=== PATIENT | male | born 1965 | race Caucasian/White ===

== ENCOUNTER 2021-05-31 16:32 | Emergency (ER) | payer BC, SELFPAY ==
--- NOTE | ~2021-05-31 | CT_ITS ---
EXAMINATION: CTA [facility] DATE: 05/31/2021 18:50 INDICATION: Groin trauma, large T1 of the left inner thigh TECHNIQUE: Computed tomographic angiography (CTA) of the left lower extremity extremities was perform ed with 100 mL Omnipaque-350 intravenous contrast. The dose-length product (DLP) was 907.40 mGy-cm. M aximum intensity projection 3D-reconstructions of the arteries were created by the technologist on a separate workstation. Automated exposure control and iterative reconstruction technique were employed . COMPARISON: None. FINDINGS: LEFT LOWER EXTREMITY VASCULATURE: The left lower extremity arterial vasculature is normal from the external iliac artery through the fo ot. No aneurysm dissection, or pseudoaneurysm is identified. There is a three-vessel runoff at the an kle. ADDITIONAL FINDINGS: There is a large soft tissue defect in the anteromedial aspect of the mid thigh. There are foci of ga s and hematoma in the left sartorius muscle. There are also foci of gas within and surrounding the sa rtorius extending within the fascia down the leg. There is a superficial soft tissue hematoma on imag e 137. No definite contrast extravasation is identified. IMPRESSION: 1. Normal left lower extremity arterial vasculature. 2. Large soft tissue defect in the anteromedial left thigh with foci of hematoma and gas predominantl y involving the sartorius muscle. Reviewed, dictated and finalized at location A. IMPRESSION: 1. Normal left lower extremity arterial vasculature. 2. Large soft tissue defect in the anteromedial left thigh with foci of hematom a and gas predominantly involving the sartorius muscle.
[2021-05-31 16:42] VITALS: BP 162/96; PULSE 104; RESP 18; TEMP 37.1; O2SAT 95
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
[2021-05-31] MEDS: SODIUM CHLORIDE 0.9% IV 1,000 ML 999 ML IV CONT (17:35)
[2021-05-31] MEDS: MORPHINE SULFATE (*CRX) 4 MG/ML INJ IV PUSH ×2 (17:36→20:29)
[2021-05-31] MEDS: ceFAZolin 2 GM/D5W 50 ML 2 GM/50 ML BAG IVPB (17:50)
[2021-05-31 17:57] LABS: Basophils Absolute Auto 0.1 K/mm3 (0.0-0.1); Basophils Percent Auto 0.4 % (0.2-1.2); Eosinophils Absolute Auto 0.1 K/mm3 (0-0.3); Eosinophils Percent Auto 0.9 % (0-4.4); Hematocrit 51.6 % (42.0-52.0); Hemoglobin 17.7 g/dL (14.0-18.0); Immature Granulocyte Absolute 0.07 K/mm3 (0.00-0.031); Immature Granulocyte Percent A 0.5 % (0-0.5); Lymphocytes Absolute Auto 1.84 K/mm3 (0.9-3.2); Lymphocytes Percent Auto 11.8 % (18.3-44.2); Mean Corpuscular HGB Conc 34.3 g/dl (32-36); Mean Corpuscular Hemoglobin 31.9 pg (26-34); Mean Platelet Volume 10.6 fl (7.4-10.4); Monocytes Absolute Auto 1.2 K/mm3 (0.1-0.6); Monocytes Percent Auto 7.8 % (2.6-8.5); Neutrophils Absolute Auto 12.2 K/mm3 (1.3-6.7); Neutrophils Percent Auto 78.6 % (45.5-73.1); Platelet Count Result 239 k/mm3 (150-375); Red Blood Count 5.55 M/mm3 (4.6-6.20); Red Cell Distribution Width 14.1 % (11.5-14.5); White Blood Count 15.6 K/mm3 (4.5-10.0)
[2021-05-31 18:11] LABS: Alanine Aminotransferase 46 U/L (4-50); Albumin Level 4.5 g/dL (3.5-5.1); Alkaline Phosphatase 55 U/L (38-126); Anion Gap 10 mmol/L (8-16); Aspartate Amino Transferase 50 U/L (17-59); Bilirubin,Total 0.5 mg/dL (0.2-1.3); Blood Urea Nitrogen 23 mg/dL (9-20); Calcium 9.6 mg/dL (8.4-10.2); Carbon Dioxide 27 mmol/L (22-30); Chloride 101 mmol/L (98-107); Estimated CRCL calculation 70 ml/min; Estimated Glomerular Filt Rate > 60; Glucose 112 mg/dL (65-110); Potassium 4.3 mmol/L (3.4-5.0); Sodium 138 mmol/L (137-145)
[2021-05-31 18:14] LABS: INR 0.9
[2021-05-31 18:15] LABS: Partial Thromboplastin Time 27.7 SECONDS (22.3-36.8)
--- NOTE | 2021-05-31 18:33 | PC.NURSE ---
Pt tolerated repair well,
[2021-05-31] MEDS: LORazepam INJ (*CRX) 2 MG/ML VIAL 1 MG IV PUSH (20:38)
[2021-05-31 21:08] VITALS: BP 144/89; PULSE 69; RESP 18; O2SAT 99
[2021-05-31 21:44] VITALS: BP 157/90; PULSE 72; RESP 15; O2SAT 100
== END 2021-05-31 21:46 | disposition home or self-care (01) ==
PROVIDERS: Emergency Medicine Emergency Medical Services; Emergency Provider General Practice; PCP Nurse Practitioner Family
DX: S71.112A Laceration without foreign body, left thigh, initial encounter (principal); V86.56XA Driver of dirt bike or motor/cross bike injured in nontraffic accident, initial encounter
CPT/HCPCS: 12034; 36415; 73706; 80053; 85025; 85610; 85730; 96365; 96375; 96376; 99284; J0690; J2060; J2270; J7030; Q9967

== ENCOUNTER 2023-09-09 07:22 | Inpatient (IN) | payer BC, SELFPAY ==
[2023-09-09] VITALS (22 sets, daily range): BP systolic 119–186; BP diastolic 65–106; PULSE 67–93; RESP 13–24; TEMP 36.6–36.8; O2SAT 91–100; BMI 29.7
--- NOTE | 2023-09-09 | ECHO_ITS ---
Patient Info Name: Kenroy Miranda Age: 58 years : 1965 Gender: Male Ht: 71 in Wt: 202 lbs BSA: 2.16 m2 HR: 87 bpm BP: 157 / 99 mmHg Heart Rhythm: Sinus Rhythm Technical Quality: Fair Exam Date: 09/09/2023 1:17 PM Exam Location: Echo Lab Exam Room: ICU4 Patient Status: Inpatient Admit Date: 09/09/2023 Staff Ordering Physician: Gertrudis Delarosa MD (tami/celso) Student Life Coordinator: Julieta Gamez RDCS Attending Provider: Gertrudis Delarosa MD (tami/celso) Referring Physician: [place] DUPREE; Exam Type: CA echo dop color flow w con Study Info Indications - STEMI S/P STENT Complete two-dimensional, color flow and Doppler transthoracic echocardiogram is performed with contrast to opacify the left ventricle and to improve the deliniation of the left ventricle endocardial borders. Contrast/Agitated Saline Contrast/Ag. Saline: Definity Amount: 2.00 ml Administered By: Julieta Gamez [facility] Existing IV Access: Yes IV Access Condition: patent with no signs of infiltration Summary 1. Left ventricular chamber dimension is normal. 2. Left ventricular systolic function is mildly reduced, estimated at 40-45%. 3. There is hypokinesis of the inferior wall, inferolateral wall. 4. The left ventricular diastolic function is grade I diastolic dysfunction. 5. Right ventricular systolic function is normal. 6. There is mild tricuspid valve regurgitation. Left Ventricle There is hypokinesis of the inferior wall, inferolateral wall. Left ventricular chamber dimension is normal. Left ventricular systolic function is mildly reduced, estimated at 40-45%. There is no increased left ventricular wall thickness. The left ventricular diastolic function is grade I diastolic dysfunction. Right Ventricle Right ventricular chamber dimension is normal. Right ventricular systolic function is normal. Left Atria Left atrial chamber dimension is normal. Right Atria Right atrial chamber dimension is normal. Atrial Septum Intact interatrial septum visualized by color flow imaging. Aortic Valve The aortic valve is probable trileaflet. There is no aortic valve stenosis. There is no aortic valve regurgitation. Pulmonic Valve The pulmonic valve is not well visualized. Mitral Valve There is trace mitral valve regurgitation. Tricuspid Valve There is mild tricuspid valve regurgitation. Pericardium/Pleural There is no pericardial effusion. Inferior Vena Cava Normal inferior vena cava with >50% collapse upon inspiration consistent with normal right atrial pressure, 3 mmHg. Aorta The aortic root size at the sinus of Valsalva is normal. Left Ventricular Outflow Tract Name Value Normal LVOT 2D LVOT Diameter 2.10 cm LVOT Doppler LVOT Peak Gradient 4 mmHg LVOT Mean Gradient 2 mmHg LVOT VTI 17.30 cm LVOT VTI/AV VTI Ratio 0.93 LVOT Stroke Volume 59.96 ml LVOT CO 14.66 l/min LVOT CI 6.79 L/min/m2 Pulmonic Valve
--- NOTE | ~2023-09-09 | XR_ITS ---
Portable chest x-ray Comparison: 10/10/1999 Clinical History: Chest pain Findings: Lungs are clear, without focal consolidation or pleural effusion. Cardiomediastinal silho uette is stable. Bones and soft tissues are unremarkable. Impression: Normal chest Reviewed, dictated and finalized at [facility]. PERSON Impression: Normal chest
--- NOTE | 2023-09-09 07:23 | ECG_ITS ---
Measurements Intervals [place] Rate: 76 P: 62 HI: 159 QRS: -3 QRSD: 94 T: 81 QT: 359 QTc: 406 Interpretive Statements SINUS RHYTHM POSSIBLE LEFT ATRIAL ENLARGEMENT INCOMPLETE RIGHT BUNDLE BRANCH BLOCK ST-T WAVE ABNORMALITY IN ANTEROLATERAL LEADS- CONSIDER ISCHEMIA BASELINE ARTIFACT- I, III, AVF, V5 ABNORMAL ECG NO PREVIOUS ECG AVAILABLE FOR COMPARISON Electronically Signed On 09-09-2023 7:40:04 CATTLE RANCHER by Messi Yung D.O.
--- NOTE | 2023-09-09 07:40 | ECG_ITS ---
Measurements Intervals [place] Rate: 73 P: 58 VT: 277 QRS: 77 QRSD: 122 T: 94 QT: 372 QTc: 413 Interpretive Statements SINUS RHYTHM WITH FIRST DEGREE AV BLOCK POSSIBLE LEFT ATRIAL ENLARGEMENT INFERIOR ST ELEVATION MYOCARDIAL INFARCT- ACUTE POSTERIOR INFARCT, ACUTE ABNORMAL ECG COMPARED TO ECG 09/09/2023 07:30:41 FIRST DEGREE AV BLOCK NOW PRESENT STEMI NOW PRESENT Electronically Signed On 09-09-2023 8:44:31 SPECIAL CERTIFICATE DICTATOR by Messi Yung D.O.
--- NOTE | 2023-09-09 07:41 | ED.CHESTPAIN ---
HPI - Chest Pain General Chief Complaint: Chest Pain Stated Complaint: chest pain Time Seen by Provider: 09/09/23 07:29 History of Present Illness HPI narrative: 58-year-old male presented to the emergency department for evaluation for chest pain that started approximately 645 this morning. Patient denies any prior history of coronary disease. Patient states the pain stays in his left chest that does not radiate to his back. Related Data Home Medications Medication Instructions Recorded Confirmed dextroamphetamine-amphetamine 20 20 mg PO DAILY 06/03/21 09/09/23 mg tablet (Adderall) levothyroxine 25 mcg capsule 25 mcg PO DAILY 06/03/21 09/09/23 Allergies Allergy/AdvReac Type Severity Reaction Status Date / Time No Known Allergies Allergy Mild Verified 06/27/21 09:14 Review of Systems Review of Systems: All systems reviewed & are unremarkable except as noted in HPI and below PMFSH Past Medical History Medical History History of Hodgkin's disease History of thyroid disorder Family History Family History Mother Lung cancer Cancer of brain Social History Social History Years smoked: 10 Smoking status: Former smoker Alcohol intake: current Drinks per week: 3 Alcohol use details: socially Do You Feel Safe in your Home?: Yes Lack of Transportation: No Lack of Food: Never True Current Housing: I Have Housing Concerned About Future Housing: No Difficulty Paying Gas/Electric Bills: No Difficulty Paying for Meds: No Currently Unemployed: No Education: High School Diploma/GED Difficulty w/ Childcare or Family Care: No Living arrangements: alone Occupation/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 HEAD: normocephalic, atraumatic. EYES: PERRLA/EOMI, conjunctivae clear. NOSE: Normal no drainage EARS:TMS clear with good light reflex. THROAT: Pharynx clear, no exudate. NECK: Supple. No adenopathy, no masses. RESPIRATORY: Airway patent, respirations nonlabored. Clear to auscultation bilaterally, no rales, rhonchi, wheezing. CARDIOVASCULAR: Regular rate and rhythm without murmurs rubs or gallops. ABDOMINAL: Soft, nontender, nondistended, normal bowel sounds MUSCULOSKELETAL: Moves all extremities. Strength/ROM intact, No edema, No calf tenderness. NEURO: Alert. Cranial nerves II through XII intact. Grossly intact SKIN: Warm, dry. Normal Color Course Course Emergency Course: Delarosa was consulted for the initial EKG and heparin bolus was started. Initial EKG shows ST depression but no evidence of acute STEMI On re-evaluation the patient clinically looked worse and was diaphoretic. Repeat EKG showed progression to full STEMI and STEMI alert was called. Patient went to the paint laboratory technician from the emergency department. Vital Signs Vital signs: Vital Signs Temperature 97.8 F 09/09/23 07:27 Pulse Rate 76 09/09/23 07:27 Respiratory Rate 16 09/09/23 07:27 Blood Pressure 186/89 H 09/09/23 07:27 Pulse Oximetry 100 09/09/23 07:27 Oxygen Delivery Room Air 09/09/23 07:27 Temperature 97.8 F 09/09/23 12:00 Pulse Rate 85 09/09/23 17:15 Respiratory Rate 15 09/09/23 17:15 Blood Pressure 146/84 H 09/09/23 17:15 Pulse Oximetry 98 09/09/23 17:15 Oxygen Delivery Room Air 09/09/23 16:00 MDM - Chest Pain Lab Data 09/09/23 07:47 09/09/23 07:47 Labs: Lab Results 09/09/23 09/09/23 09/09/23 Range/Units 07:46 07:47 08:20 WBC 9.4 (4.5-10.0) K/mm3 RBC 6.02 (4.6-6.20) M/mm3 Hgb 18.5 H (14.0-18.0) g/dL Hct 56.3 H (42.0-52.0) % MCV 93.5 (80-100) fl MCH 30.7 (26-34) pg MCHC 32.9 (32-36)
[2023-09-09] MEDS: ONDANSETRON INJ 4 MG/2 ML VIAL (07:56)
[2023-09-09] MEDS: ASPIRIN 81 MG CHEWABLE TABLET 324 MG PO (07:57)
[2023-09-09 07:58] LABS: Basophils Absolute Auto 0.1 K/mm3 (0.0-0.1); Basophils Percent Auto 0.7 % (0.2-1.2); Eosinophils Absolute Auto 0.3 K/mm3 (0-0.3); Eosinophils Percent Auto 2.9 % (0-4.4); Hematocrit 56.3 % (42.0-52.0); Hemoglobin 18.5 g/dL (14.0-18.0); Immature Granulocyte Absolute 0.04 K/mm3 (0.00-0.031); Immature Granulocyte Percent A 0.4 % (0-0.5); Lymphocytes Absolute Auto 2.47 K/mm3 (0.9-3.2); Lymphocytes Percent Auto 26.4 % (18.3-44.2); Mean Corpuscular HGB Conc 32.9 g/dl (32-36); Mean Corpuscular Hemoglobin 30.7 pg (26-34); Mean Corpuscular Volume 93.5 fl (80-100); Mean Platelet Volume 9.5 fl (7.4-10.4); Monocytes Absolute Auto 1.2 K/mm3 (0.1-0.6); Neutrophils Absolute Auto 5.3 K/mm3 (1.3-6.7); Neutrophils Percent Auto 56.6 % (45.5-73.1); Platelet Count Result 243 k/mm3 (150-375); Red Blood Count 6.02 M/mm3 (4.6-6.20); Red Cell Distribution Width 16.8 % (11.5-14.5); White Blood Count 9.4 K/mm3 (4.5-10.0)
[2023-09-09] MEDS: NITROGLYCERIN SL 0.4 MG TABLET SUBLINGUAL (07:59)
[2023-09-09] MEDS: HEPARIN SODIUM 5,000 UNITS/ML VIAL 4000 UNITS IV PUSH (08:02)
[2023-09-09 08:10] LABS: INR 0.9
[2023-09-09 08:11] LABS: Partial Thromboplastin Time 30.3 SECONDS (22.3-36.8)
[2023-09-09 08:14] LABS: Alanine Aminotransferase 49 U/L (6-50); Albumin Level 4.6 g/dL (3.5-5.1); Alkaline Phosphatase 66 U/L (38-126); Anion Gap 10 mmol/L (8-16); Aspartate Amino Transferase 47 U/L (17-59); Bilirubin,Total 0.8 mg/dL (0.2-1.3); Blood Urea Nitrogen 21 mg/dL (9-20); Calcium 9.4 mg/dL (8.4-10.2); Carbon Dioxide 30 mmol/L (22-30); Chloride 101 mmol/L (98-107); Estimated CRCL calculation 85 ml/min; Estimated Glomerular Filt Rate > 60; Glucose 109 mg/dL (65-110); Lipase 46 U/L (23-300); Potassium 3.9 mmol/L (3.4-5.0); Sodium 141 mmol/L (137-145)
--- NOTE | 2023-09-09 08:35 | PC.NURSE ---
PT REPEAT EKG CONCERNING FOR CARDIAC EVENT. STEMI CALLED OVERHEAD
--- NOTE | 2023-09-09 08:44 | PC.NURSE ---
[facility] 837 O/H [address] [place] 838 Delarosa 840 ALS Kam - ETA 45min to 1Hr [place] [facility] notified of ETA
[2023-09-09 09:04] LABS: Influenza A QL RT-PCR Negative (Negative); Influenza B QL RT-PCR Negative (Negative); RSV RNA, RT-PCR Negative (Negative); SARS-CoV-2 RNA PCR Negative (Negative)
--- NOTE | 2023-09-09 10:13 | PM.IMHP ---
H&P: HPI History of Present Illness Date/Time: 09/09/23 10:13 Chief Complaint: Chest pain Narrative: Patient is a 58 year old male with hypothyroidism who presented with chest pain. First began having intermittent chest pain on Thursday morning, however, this morning, it became constant, therefore he came to [place] [facility]. Chest pain started at approximately 6:45AM. Upon arrival to the ED, initial EKG showed sinus rhythm, incomplete right bundle branch block, slight ST elevation in AVR with diffuse ST depressions. Patient had worsening chest pain afterwards, and a repeat EKG was obtained which showed inferoposterior STEMI. pit laborer activated. Upon arrival to photo lab technician, patient reported 1/10 chest pain. Hemodynamically stable. No prior cardiac history. Denies tobacco use. 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 Medications and Allergies Home Medications Medication Instructions Recorded Confirmed Type dextroamphetamine-amphetamine 20 20 mg PO DAILY 06/03/21 06/30/21 History mg tablet (Adderall) levothyroxine 25 mcg capsule 25 mcg PO DAILY 06/03/21 06/30/21 History Allergies Allergy/AdvReac Type Severity Reaction Status Date / Time No Known Allergies Allergy Mild Verified 06/27/21 09:14 Vital Signs Vital Signs - 24 hr 09/09/23 07:27 09/09/23 07:30 09/09/23 07:59 Temperature 36.6 C Pulse Rate 76 67 Respiratory Rate 16 14 Blood Pressure 186/89 H 143/94 H Pulse Oximetry 100 99 Oxygen Delivery Room Air Room Air 09/09/23 08:01 Temperature Pulse Rate 81 Respiratory Rate 16 Blood Pressure 141/84 H Pulse Oximetry 98 Oxygen Delivery Exam Const: General: no acute distress HENMT: Mouth: Yes moist mucous membranes Eyes: General: appearance normal, both eyes and all related structures Sclera: sclerae normal Resp: Effort & Inspection: normal respiratory effort Cardio: Rate: regular rate Rhythm: regular rhythm Skin: General skin exam: normal color Neuro: Speech: normal speech Psych: Mental Status: mental status grossly normal Affect: normal affect H&P: Results Labs Labs: Short CBC 09/09/23 Range/Units 07:47 WBC 9.4 (4.5-10.0) K/mm3 Hgb 18.5 H (14.0-18.0) g/dL Hct 56.3 H (42.0-52.0) % Plt Count 243 (150-375) k/mm3 BMP 09/09/23 07:47 Sodium 141 Potassium 3.9 Chloride 101 Carbon Dioxide 30 BUN 21 H Creatinine 0.90 Glucose 109 Calcium 9.4 Cardiac Enzymes 09/09/23 Range/Units 07:47 Troponin I 1.090 H* (0.000-0.034) ng/mL Liver Function 09/09/23 Range/Units 07:47 Total Bilirubin 0.8 (0.2-1.3) mg/dL AST 47 (17-59) U/L ALT 49 (6-50) U/L Alkaline Phosphatase 66 (38-126) U/L Albumin 4.6 (3.5-5.1) g/dL Assessment and Plan Assessment and plan (1) STEMI (ST elevation myocardial infarction): Code(s): I21.3 - ST elevation (STEMI) myocardial infarction of unspecified site Status: Acute Assessment and Plan: Inferoposterior STEMI. Emergent cardiac catheterization showed acute occlusion in the proximal RCA. S/p successful PCI with GHASSAN x 2 in the proximal to mid RCA. LVEDP 16mmHg. -Admit to ICU -Loaded with ASA in the ED. Continue with ASA 81mg once daily indefinitely. -Loaded with Brilinta 180mg in the photo lab technician. Continue with Brilinta 90mg BID. -Start high-intensity statin. -Echocardiogram. -Check lipid panel, Hgb A1c, TSH level. Aggressive risk factor mo
--- NOTE | 2023-09-09 10:21 | WPDMODSED ---
Moderate Sedation Note-Pt Data Patient Data Diagnosis: STEMI Present Complaint: Chest pain, STEMI Procedure to be performed/Plan: Primary PCI Allergies Allergy/AdvReac Type Severity Reaction Status Date / Time No Known Allergies Allergy Mild Verified 06/27/21 09:14 Home Medications Medication Instructions Recorded Confirmed Type dextroamphetamine-amphetamine 20 20 mg PO DAILY 06/03/21 06/30/21 History mg tablet (Adderall) levothyroxine 25 mcg capsule 25 mcg PO DAILY 06/03/21 06/30/21 History Current Medications: Active Medications Aspirin (Aspirin 81 Mg Enteric Tablet) 81 mg PO QAM NIC Atorvastatin Calcium (Atorvastatin 40 Mg Tablet) 80 mg PO DAILY NIC Sodium Chloride (Normal Saline Iv) 1,000 mls @ 125 mls/hr IV CONT .Q8H ONE Stop: 09/09/23 18:11 Perflutren Lipid Microsphere (Perflutren Lipid Microspheres 1.5 Ml Vial Diluted To 10 Ml Total Volume) 0 ml IV PUSH ONCE PRN; Protocol PRN Reason: adequate visualization Stop: 09/12/23 10:11 Ticagrelor (Ticagrelor 90 Mg Tablet) 90 mg PO Q12HR NIC Sedation/Anesthesia: No previous sedation/anesthesia problems (including family history). 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 Physical Exam Physical Exam Pre Procedural Exam: Normal: Appearance, Lungs, Heart Rate, Heart Rhythm, Neuro Exam, Abdomen, Extremities and Skin Hours since solid foods: 0 Hours since liquid intake: 0 Mallampati Classification: class III Internal Medicine - PN: Obj Da Vital Signs Vital Signs: Vital Signs - 24 hr 09/09/23 07:27 09/09/23 07:30 09/09/23 07:59 Temperature 36.6 C Pulse Rate 76 67 Respiratory Rate 16 14 Blood Pressure 186/89 H 143/94 H Pulse Oximetry 100 99 Oxygen Delivery Room Air Room Air 09/09/23 08:01 Temperature Pulse Rate 81 Respiratory Rate 16 Blood Pressure 141/84 H Pulse Oximetry 98 Oxygen Delivery Meds/Results Medications: Active Medications Generic Name Dose Route Start Last Admin Trade Name Freq PRN Reason Stop Dose Admin Aspirin 81 mg 09/10/23 09:00 Aspirin 81 Mg Enteric Tablet PO QAM [facility] Atorvastatin Calcium 80 mg 09/09/23 10:15 Atorvastatin 40 Mg Tablet PO DAILY [facility] Sodium Chloride 1,000 mls @ 125 mls/hr 09/09/23 10:12 Normal Saline Iv IV CONT 09/09/23 18:11 .Q8H ONE Perflutren Lipid Microsphere 0 ml 09/09/23 10:11 Perflutren Lipid Microspheres 1.5 Ml Vial Diluted To 10 Ml Total Volume IV PUSH 09/12/23 10:11 ONCE PRN adequate visualization Protocol Ticagrelor 90 mg 09/09/23 21:00 Ticagrelor 90 Mg Tablet PO Q12HR [facility] Radiology Results: ITS Impressions Chest X-Ray 09/09/23 08:23 Impression: Normal chest Labs 09/09/23 07:47 09/09/23 07:47 Labs: Laboratory Results - last 24 hr 09/09/23 09/09/23 07:47 08:20 WBC 9.4 RBC 6.02 Hgb 18.5 H Hct 56.3 H MCV 93.5 MCH 30.7 MCHC 32.9 RDW 16.8 H Plt Count 243 MPV 9.5 Immature Gran % (Auto) 0.4 Neut % (Auto) 56.6 Lymph % (Auto) 26.4 Payne % (Auto) 13.0 H Eos % (Auto) 2.9 Baso % (Auto) 0.7 Lymph # (Auto) 2.47 Payne # (Auto) 1.2 H Eos # (Auto) 0.3 Baso # (Auto) 0.1 Abs Immat Gran (auto) 0.04 H Absolute Neuts (auto) 5.3 Absolute Nucleated RBC 0.0 Nucleated RBC % 0.0 PT 12.0 INR 0.9 APTT 30.3 Sodium 141 Potassium 3.9 Chloride 101 Carbon Dioxide 30 Anion Gap 10 BUN 21 H Creatinine 0.90 Estim Creat Clear Calc 85 Estimated GFR > 60 Glucose 109 Calcium 9.4
--- NOTE | 2023-09-09 10:22 | WPDCARDPROC ---
Cardiac Cath Procedure Note Date of procedure:: 09/09/23 Performing physician:: CATHETERIZATION LABORATORY REPORT Procedure Date: 09/09/2022 Phy Therapist: Gertrudis Delarosa M.D., [facility]? Referring Physician: Gavin Dao M.D. ([facility]) Anesthesia: Versed and Fentanyl were ordered and given in my presence at 09:01, procedure ended at 10:03. Supervision of nurse monitored moderate sedation with Versed and Fentanyl was provided for 62 minutes. Total of Versed 1mg and Fentanyl 50mcg were administered by the Assembler Type Bar And Segment RN Nemo Yanez. Pre-op Diagnosis: Inferoposterior STEMI Post-op Diagnosis: 1. Acute occlusion of the proximal RCA s/p successful PCI with GHASSAN x 2 in the proximal-mid RCA. 2. Left ventricular end-diastolic pressure of 16mmHg Procedure(s): 1. Moderate sedation 2. Ultrasound-guided access of the right common femoral artery 3. Coronary angiography 4. Left heart cath 5. PCI of the proximal-mid RCA with GHASSAN x 2 (4.5mm x 26mm Resolute [place] GHASSAN and 5.0mm x 30mm Resolute [place] GHASSAN in an overlapping fashion). 6. IVUS of the RCA Access Site: Right common femoral artery (Radial access not pursued as we are out of TR bands) Brief History and Clinical Indications: Patient is a 58 year old male who is referred for emergent cardiac catheterization for inferoposterior STEMI). All risks, benefits and alternatives to left heart catheterization with or without percutaneous coronary intervention was discussed at length with the patient. Risk of complications including but not limited to bleeding, infection, arrhythmia, stroke, worsening kidney function, blood loss, groin hematoma, limb loss, emergency coronary artery bypass grafting, and even were discussed with the patient and all questions were answered. The patient understood and wished to proceed. Time out called, patient name, date of , medical record number, allergies, procedure performed, identify Phy Therapist, patient and staff member concurred with accurate data, procedure carried on. Findings: LEFT HEART CATHETERIZATION FINDINGS: 1. Left main: The left main coronary artery is widely patent without any significant obstructive disease. 2. Left anterior descending: The LAD and the diagonal branches have luminal irregularities without any significant obstructive angiographic disease. There appears to be a dual LAD system. 3. Left circumflex: The left circumflex artery and the main marginal branches have luminal irregularities without any significant obstructive angiographic disease. 4. Right coronary artery: The RCA is the dominant vessel. The RCA is completely occluded in its proximal portion. 5. Left ventricle: A. End-diastolic pressure 16mmHg. B. LV gram deferred. C. No significant gradient across aortic valve on catheter pullback. Description of Procedure and PCI: Informed consent signed and placed in the chart. Patient transferred to pathology laboratory technologist room. Prepped and draped in usual sterile fashion. 2% lidocaine in right groin area. Micropuncture needle used to access right common femoral artery with Seldinger technique under fluoroscopic and ultrasound guidance. J wire advanced, micropuncture cannula placed. Right iliofemoral angiogram performed, access confirmed and micropuncture cannula exchanged for 6-FR sheath. 5F FL 4 diagnostic catheter engaged Left Main Coronary Artery. Multiple orthogonal angiogram obtained and reviewed Angiomax used for anticoagulation. 6F FR 4 guide catheter was used to intubate the RCA. 0.014 [place] coronary wire was passed in to the distal RCA. The lesion was pre-dilated with a 2.5mm x 15mm balloon inflated to high SANAZ. Multiple balloon inflations done. This re-established flow into the distal RCA. IVUS catheter advanced. Reference measurements obtained. A 4.5mm x 26mm Resolute [place] GHASSAN was successfully deployed into mid RCA. A 5.0mm x 30mm Resolute [place] GHASSAN was successfully deployed into the proximal-mid RCA, place
--- NOTE | 2023-09-09 10:41 | ADMGEN ---
This patient, Kenroy Miranda IV, was admitted to Intensive Care Unit-4 at 1028. Patient/family oriented to hospital policies and general routines including ID bracelet, bed and alarms, visiting hours, pain management, procedures, bathroom and other care routines, personal items, smoking policy, room service/diet, and visiting hours. Information on how to activate the Rapid Response Team has been discussed. Patient/Family are encouraged to report perceived risks to care and to ask questions if they do not understand what they are told or what they should do.
[2023-09-09 11:32] LABS: Cholesterol 160 mg/dL (0-200); HDL Direct 40 mg/dL; Triglycerides 321 mg/dL (<150)
--- NOTE | 2023-09-09 11:40 | WPDCNINT ---
Assessment and Plan Assessment and plan (1) STEMI (ST elevation myocardial infarction): Code(s): I21.3 - ST elevation (STEMI) myocardial infarction of unspecified site Status: Acute Assessment and Plan: Inferior STEMI status post cardiac catheterization and PCI Post-op Diagnosis: 1. Acute occlusion of the proximal RCA s/p successful PCI with GHASSAN x 2 in the proximal-mid RCA. 2. Left ventricular end-diastolic pressure of 16mmHg Admit to ICU and telemetry monitoring Check echocardiogram Continue aspirin statin and Brilinta IV fluids (2) Hypothyroidism: Code(s): E03.9 - Hypothyroidism, unspecified Status: Acute Assessment and Plan: Patient's TSH is elevated at 7.86. Admits that he is not compliant with medication and does not take it regularly I will increase dose 37.5 at this time and can be further titrated as outpatient Plan DVT prophylaxis -patient received anticoagulation in the catheterization lab Nutrition -heart healthy diet Laboratory Courier Consult Note Consult date: 09/09/23 Reason for consult: STEMI HPI: Kenroy Miranda IV is a 58 year old male with past medical history of hypothyroidism and ADHD presented to ER this morning with chief complaint of chest pain that started around 645 this morning. Patient states that he had pain yesterday but resolved spontaneously. Pain was on left side of the chest with no radiation, was constant. He rates pain 2/10 achy in quality with no radiation. No aggravating or relieving factor. No shortness of breath palpitation dizziness or lightheadedness. He did feel some nausea but no vomiting. All other systems were reviewed and were negative Arrival to ER patient's initial EKG showed sinus rhythm with incomplete right bundle branch block. Repeat EKG showed inferior posterior STEMI. Patient was taken to cardiac catheterization lab by cardiology and underwent cardiac catheterization which showed Post-op Diagnosis: 1. Acute occlusion of the proximal RCA s/p successful PCI with GHASSAN x 2 in the proximal-mid RCA. 2. Left ventricular end-diastolic pressure of 16mmHg Patient now admitted to ICU for further evaluation management. He states his pain has significantly improved and he rates it at 1% at this time. Patient denies fever, dizziness lightheadedness, shortness of breath, cough, nausea vomiting, abdominal pain,, diarrhea, headache or constipation. All the systems were reviewed and were negative Review of Systems Review of Systems: All systems reviewed & are unremarkable except as noted in HPI and below (HPI) [facility] Past Medical History Medical History History of Hodgkin's disease History of thyroid disorder Family History Family History Mother Lung cancer Cancer of brain Social History Social History Years smoked: 10 Smoking status: Former smoker Alcohol intake: current Drinks per week: 3 Alcohol use details: socially Do You Feel Safe in your Home?: Yes Lack of Transportation: No Lack of Food: Never True Current Housing: I Have Housing Concerned About Future Housing: No Difficulty Paying Gas/Electric Bills: No Difficulty Paying for Meds: No Currently Unemployed: No Education: High School Diploma/GED Difficulty w/ Childcare or Family Care: No Living arrangements: alone Occupation/Education: occupation Additional occupation/education comments: Contractor Spiritual care concerns: No Meds Home Medications and Allergies Home Medications Medication Instructions Recorded Confirmed Type dextroamphetamine-amphetamine 20 20 mg PO DAILY 06/03/21 09/09/23 History mg tablet (Adderall) levothyroxine 25 mcg capsule 25 mcg PO DAILY 06/03/21 09/09/23 History Allergies Allergy/AdvReac Type Severity Reaction Status Date / Time No Known Al
[2023-09-09 11:43] LABS: LDL Cholesterol Direct 97 mg/dL
[2023-09-09 12:11] LABS: Hemoglobin A1C 6.2 % (<5.7)
[2023-09-09 12:47] LABS: MRSA (PCR) NOT DETECTED (NOT DETECTE)
[2023-09-09] MEDS: SODIUM CHLORIDE 0.9% IV 1,000 ML 125 ML IV CONT (13:00)
[2023-09-09] MEDS: ATORVASTATIN 40 MG TABLET 80 MG PO (13:00)
[2023-09-09] MEDS: LEVOTHYROXINE SODIUM 12.5 MCG TABLET PO (13:07)
[2023-09-09] MEDS: LEVOTHYROXINE SODIUM 25 MCG TABLET PO (13:08)
[2023-09-09] MEDS: PERFLUTREN LIPID MICROSPHERES 1.5 ML VIAL DILUTED TO 10 ML TOTAL VOLUME IV PUSH (13:50)
--- NOTE | 2023-09-09 14:19 | IVDEFINITY ---
Prior to administration of IV Definity the patient was educated on the risks and benefits of the imaging enhancing agent including potential adverse side effects. The patient verbalized understanding. Allergies were verified. No exclusion criteria were identified and at least one of the following inclusion criteria were met: 1) physician request, 2) patient technically difficult to image (per the [place] [employer]chocardi[employer] guidelines of two or more segments not discernable within the apical view), or 3) questionable left ventricular function. ?
--- NOTE | 2023-09-09 17:16 | PCCPR ---
Spoke with pt at bedside s/p PCI and stents today. Kenroy verbalized understanding and interest in getting started when able in the program. Explained our coordinator Kristie would be calling soon to set an orientation. States his typical work day is 7-330 p and would be available in the afternoon.
[2023-09-09] MEDS: MELATONIN 5 MG TABLET PO (21:24)
[2023-09-09] MEDS: TICAGRELOR 90 MG TABLET PO (21:24)
[2023-09-10] VITALS: BP 147/83; PULSE 90; RESP 20; TEMP 36.6; O2SAT 95
[2023-09-10 02:00] VITALS: BP 140/78; PULSE 85; RESP 18; O2SAT 95
[2023-09-10 04:00] VITALS: BP 150/85; PULSE 84; RESP 21; TEMP 36.5; O2SAT 96
[2023-09-10 06:00] VITALS: BP 146/87; PULSE 89; RESP 16; O2SAT 95
[2023-09-10] MEDS: LEVOTHYROXINE SODIUM 25 MCG TABLET PO (07:45)
[2023-09-10] MEDS: LEVOTHYROXINE SODIUM 12.5 MCG TABLET PO (07:46)
[2023-09-10 08:00] VITALS: BP 124/82; PULSE 91; PULSE 99; RESP 16; TEMP 36.6; O2SAT 94
--- NOTE | 2023-09-10 08:22 | WPDINTPN ---
Progress Note: A&P Assessment and Plan (1) STEMI (ST elevation myocardial infarction): Code(s): I21.3 - ST elevation (STEMI) myocardial infarction of unspecified site Status: Acute Assessment and Plan: Inferior STEMI status post cardiac catheterization and PCI Post-op Diagnosis: 1. Acute occlusion of the proximal RCA s/p successful PCI with GHASSAN x 2 in the proximal-mid RCA. 2. Left ventricular end-diastolic pressure of 16mmHg Admit to ICU and telemetry monitoring Continue aspirin statin and Brilinta Start beta-edelmira and MITZI-inhibitor IV fluids Echo Summary ? 1. Left ventricular chamber dimension is normal. ? 2. Left ventricular systolic function is mildly reduced, estimated at 40-45%. ? 3. There is hypokinesis of the inferior wall, inferolateral wall. ? 4. The left ventricular diastolic function is grade I diastolic dysfunction. ? 5. Right ventricular systolic function is normal. ? 6. There is mild tricuspid valve regurgitation. (2) Hypothyroidism: Code(s): E03.9 - Hypothyroidism, unspecified Status: Acute Assessment and Plan: Patient's TSH is elevated at 7.86. Admits that he is not compliant with medication and does not take it regularly I have increased dose 37.5 at this time and can be further titrated as outpatient. I have discussed this with the patient (3) HTN (hypertension): Code(s): I10 - Essential (primary) hypertension Status: Acute Assessment and Plan: Start Coreg and lisinopril at low doses Plan DVT prophylaxis -patient received anticoagulation in the catheterization lab Nutrition -heart healthy diet Transfer out of ICU today Subjective Date/time seen: 09/10/23 He states he feels good and denies any specific complaints. He states he feels achy and sore laying in bed all night. Patient denies fever, chest pain, shortness of breath, cough, nausea vomiting, abdominal pain,, diarrhea, headache or constipation. All other systems were reviewed and were negative Sinus rhythm on the monitor and his blood pressure has been elevated through the night with systolics in 140s and 150s. He is on room air and tolerating p.o. diet. Afebrile Review of Systems Review of Systems: All systems reviewed & are unremarkable except as noted in HPI and below (HPI) Exam Narrative: General: Pt is alert awake and in NAD Lungs/Chest: Trachea central Clear BS B/L, No crackles or wheezing. Cardiac: RRR. Normal S1 S2. No murmurs Circulation: Pedal pulses are intact and symmetrical. Abdomen: Normal bowel sounds.. Soft. NT. ND. Extremities: No clubbing, cyanosis or edema. Warm small bruise at the site of sheath but no underlying hematoma could be felt year. : Kraus in place Neurologic: Follows commands. Moves all 4 extremities PERRL AO x3 Skin: No Rash Objective Data Vital Signs Vital Signs: Vital Signs - 24 hr 09/09/23 10:44 09/09/23 12:00 09/09/23 12:00 Temperature 36.6 C 36.6 C Pulse Rate 90 90 Pulse Rate [Bilateral Apical Monitor] Respiratory Rate 18 22 H Blood Pressure 157/99 H 155/95 H Pulse Oximetry 97 97 Oxygen Delivery Room Air 09/09/23 12:00 09/09/23 14:00 09/09/23 14:00 Temperature Pulse Rate 85 90 87 Pulse Rate [Bilateral Apical Monitor] Respiratory Rate 13 Blood Pressure 160/87 H Pulse Oximetry 98 Oxygen Delivery 09/09/23 15:45 09/09/23 16:00 09/09/23 16:00 Temperature Pulse Rate 88 81 85 Pulse Rate [Bilateral Apical Monitor] 88 85 Respiratory Rate 21 H 18 13 Blood Pressure 153/83 H 151/78 H 153/65 H Pulse Oximetry 95 96 97 Oxygen Delivery 09/09/23 16:15 09/09/23 16:00 09/09/23 16:30 Temperature Pulse Rate 80 82 Pulse Rate [Bilateral Apical Monitor] 80 82 Respiratory Rate 15 13 Blood Pressure 151/78 H 147/83 H Pulse Oximetry 97 97 Oxygen Delivery Room Air 09/09/23 16:00 09/09/23 16:45 09/09/23 17:15 Temperature Pulse Rate 82 79 85 Pulse Rate [Bilateral Apica
[2023-09-10] MEDS: ASPIRIN 81 MG ENTERIC TABLET PO (08:29)
[2023-09-10] MEDS: TICAGRELOR 90 MG TABLET PO (08:29)
[2023-09-10] MEDS: ATORVASTATIN 40 MG TABLET 80 MG PO (08:29)
[2023-09-10] MEDS: carvediloL 3.125 MG TABLET PO (09:10)
[2023-09-10] MEDS: lisinopriL 5 MG TABLET PO (09:11)
[2023-09-10 10:00] VITALS: BP 130/79; PULSE 86; PULSE 88; RESP 16; O2SAT 99
--- NOTE | 2023-09-10 11:21 | PM.DS ---
DS: Admitting Diagnosis Discharge Date 09/10/2023 Admitting Diagnosis STEMI DS: Discharge Diagnosis Discharge Diagnosis (1) ST elevation (STEMI) myocardial infarction: Code(s): I21.3 - ST elevation (STEMI) myocardial infarction of unspecified site Status: Acute (2) HTN (hypertension): Code(s): I10 - Essential (primary) hypertension Status: Acute (3) Hypothyroidism: Code(s): E03.9 - Hypothyroidism, unspecified Status: Acute DS: Summary Hospital Course Hospital Course: Inferoposterior STEMI. Emergent cardiac catheterization showed acute occlusion in the proximal RCA. S/p successful PCI with GHASSAN x 2 in the proximal to mid RCA. Patient to be on ASA 81mg once daily indefinitely. Brilinta 90mg BID for at least 1 year. Started Atorvastatin 80mg QD. Echocardiogram showed LVEF 40-45%, hypokinesis of the inferior wall and inferolateral wall, normal RVSF, no significant valvular disease. Started on Coreg 3.125mg PO BID and Lisinopril 5mg QD. Referral to cardiac rehab placed. Patient's TSH was noted to be elevated at 7.86. His Levothyroxine was increased to 37.5mcg. Patient had an uncomplicated hospital stay. Status at Discharge Cognitive/behavioral status at discharge: Stable Functional status at discharge: independent ambulation Overall status at discharge: patient is back to baseline Time Spent with Patient Time attestation: Total time spent providing and/or coordinating discharge services: Exam Const: General: comfortable and no acute distress HENMT: Mouth: Yes moist mucous membranes Eyes: General: appearance normal, both eyes and all related structures Sclera: sclerae normal Neck: Neck: supple Resp: Effort & Inspection: normal respiratory effort Auscultation: clear to auscultation bilaterally Cardio: Rate: regular rate Rhythm: regular rhythm Heart sounds: no murmurs Skin: General skin exam: normal color Psych: Mental Status: mental status grossly normal Affect: normal affect DS: Data Data Completed and Pending Labs on day of discharge: Labs from last 24 hours 09/09/23 09/09/23 11:26 07:46 Hemoglobin A1c 6.2 H Triglycerides 321 H Cholesterol 160 LDL Cholesterol Direct 97 HDL Direct 40 TSH 7.860 H Nasal MRSA (PCR) Not detected Discharge Plan Discharge Attending physician on discharge: Gertrudis Delarosa Consulting providers: Brendan Vasquez Discharging Clinician: Gertrudis Delarosa Anticipated Discharge Date/Time: 09/10/23 11:16 Patient Disposition: Home, Self-Care Activity: may shower Diet: heart healthy Discharge Instructions: No heavy lifting >10lbs for the next 5 days. Keep right groin area clean and dry. Do not miss any doses of ASA and Brilinta. Call our [facility] Cardiology office with any concerns. Patient Instructions: Antibiotic Form, Lisinopril (By mouth), Carvedilol (By mouth), Ticagrelor (By mouth), Heart Attack (GEN), Heart Healthy Diet (GEN) Stand Alone Forms: General Discharge Information, Work/School Release IP Follow-up/Referrals: Gertrudis Delarosa MD [Physician] - Discharge Medications: New aspirin 81 mg Tablet,Delayed Release (Dr/Ec) 81 mg PO QAM Qty: 90 3RF atorvastatin 80 mg tablet 80 mg PO DAILY Qty: 90 3RF carvedilol [Coreg] 3.125 mg Tablet 3.125 mg PO Q12HR Qty: 90 3RF levothyroxine 37.5 mcg capsule 37.5 mcg PO DAILY@0630 Qty: 90 3RF lisinopril 5 mg Tablet 5 mg PO QAM Qty: 90 3RF Brilinta 90 mg Tablet 90 mg PO Q12HR Qty: 180 3RF Continued dextroamphetamine-amphetamine [Adderall] 20 mg tablet 20 mg PO DAILY Discontinued levothyroxine 25 mcg capsule 25 mcg PO DAILY Date of admission: 09/09/23 08:40 Primary Care Provider: Kristin,Violeta Velez Admitting Provider: Gertrudis Delarosa Attending physician on admission: Gertrudis Delarosa Condition: Stable
== END 2023-09-10 12:10 | disposition home or self-care (01) | DRG 322 ==
LOC: ANHED 08:13 → ANHICU 10:35
PROVIDERS: Admitting Provider Internal Medicine; Emergency Provider Emergency Medicine; PCP Nurse Practitioner; Visit Provider Internal Medicine
PROC: 4A023N7 Measurement of Cardiac Sampling and Pressure, Left Heart, Percutaneous Approach (ICD-10-PCS; CPT 93452; principal; 2023-09-09 08:45)
PROC: 027035Z Dilation of Coronary Artery, One Artery with Two Drug-eluting Intraluminal Devices, Percutaneous Approach (ICD-10-PCS; 2023-09-09 08:45)
PROC: 027035Z Dilation of Coronary Artery, One Artery with Two Drug-eluting Intraluminal Devices, Percutaneous Approach (ICD-10-PCS; 2023-09-09 08:45)
PROC: 027035Z Dilation of Coronary Artery, One Artery with Two Drug-eluting Intraluminal Devices, Percutaneous Approach (ICD-10-PCS; 2023-09-09 08:45)
DX: I21.19 ST elevation (STEMI) myocardial infarction involving other coronary artery of inferior wall (principal); I25.10 Atherosclerotic heart disease of native coronary artery without angina pectoris; I10 Essential (primary) hypertension; E03.9 Hypothyroidism, unspecified; F90.9 Attention-deficit hyperactivity disorder, unspecified type; Z85.71 Personal history of Hodgkin lymphoma; Z20.822 Contact with and (suspected) exposure to COVID-19
CPT/HCPCS: 36415; 71045; 80053; 80061; 83036; 83690; 84443; 84484; 85025; 85610; 85730; 87637; 87641; 92978; 93005; 93458; 96374; 99285; A9270; C1725; C1753; C1760; C1769; C1887; C1894; C8929; C9606; G0269; J0583; J1327; J1644; J2250; J2305; J2371; J2405; J3010; J7030; J7040; Q9957

== ENCOUNTER 2023-11-04 16:30 | Outpatient (RCR) | payer BC, SELFPAY | END 2023-12-03 17:01 | disposition home or self-care (01) | LOC: ANHCPREHAB 16:30 | PROVIDERS: PCP Nurse Practitioner; Visit Provider Internal Medicine | DX: Z95.5 Presence of coronary angioplasty implant and graft (principal); I25.2 Old myocardial infarction | CPT/HCPCS: 93798 ==

== ENCOUNTER 2024-01-18 18:38 | Emergency (ER) | payer BC, SELFPAY ==
--- NOTE | ~2024-01-18 | US_ITS ---
EXAMINATION: US venous doppler LE RT DATE: 01/18/2024 19:52 INDICATION: right calf pain- swelling r/o dvt vs hematoma . TECHNIQUE: Grayscale images without and with compression and Doppler images of the right lower extrem ity veins were obtained. COMPARISON: None FINDINGS: The right common femoral vein, profunda (deep) femoral vein, femoral vein, popliteal vein, peroneal v ein, posterior tibial veins, and greater saphenous vein are patent. 0.6 x 7.1 cm hypoechoic subcutane ous structure along the superior surface of the calf musculature, no internal or surrounding vascular flow. IMPRESSION: Patent right lower extremity veins. No evidence of deep venous thrombosis. Probable calf muscle hematoma/muscle strain, if signs of infection are absent. Correlate with pain/te nderness. Reviewed, dictated and finalized at location K. IMPRESSION: Patent right lower extremity veins. No evidence of deep venous thrombosis. Probable calf muscle hematoma/muscle strain, if signs of infection are absent. Correlate with pain/tenderness.
--- NOTE | ~2024-01-18 | XR_ITS ---
EXAM: XR tibia fibula RT 2V DATE: 01/18/2024 18:58 HISTORY: calf pain/posterior leg pain x 8 days; no injury . COMPARISON: None available. FINDINGS: Normal mineralization. No fracture or dislocation. No lytic or blastic lesion. Joint space s are maintained. No erosion or periosteal change. Generalized soft tissue swelling in the leg. IMPRESSION: No acute osseous finding in the right tibia/fibula. Reviewed, dictated and finalized at location K.
[2024-01-18 18:38] VITALS: BP 145/68; PULSE 86; RESP 18; TEMP 36.6; O2SAT 98
--- NOTE | 2024-01-18 18:41 | ED.LOWEXIN ---
HPI - Extremity Injury (Lower) General Chief Complaint: Extremity Injury, Lower <Zain Goncalves APRN - Last Filed: 01/18/24 18:47> Stated Complaint: R calf pain <Zain Goncalves APRN - Last Filed: 01/18/24 18:47> Time Seen by Provider: 01/18/24 18:41 <Zain Goncalves APRN - Last Filed: 01/18/24 18:47> Focused HPI: Kenroy is a 58-year-old male patient presenting to the ER today with complaints of a day day history calf pain and swelling. Does have old bruising noted to the right lower foot. Is significantly swollen when compared to the left leg. Denies any fever or chills but feels tightness and pain in the back of his calf. Is concerned about a DVT General: Well-developed, well nourished, in no apparent distress Head: Normocephalic, atraumatic. Cardio: Regular rate and rhythm, s1 and s2 normal, no murmur appreciated. Resp: Clear to auscultation bilaterally, no rhonchi, rales, wheezing or rubs. Musculoskeletal: No deformity, tender to palpation with bruising and swelling noted over the right calf, old bruising noted to the right foot, swelling noted to the right leg when compared to the left, grossly normal range of motion, muscle strength strong and equal, peripheral pulse strong, no cyanosis, normal gait and station Patient screened in triage and initial orders placed. Additional care and disposition to be based upon diagnostic testing and treatment. <Zain Goncalves APRN - Last Filed: 01/18/24 18:47> Focused HPI: Kenroy is a 58-year-old male patient presenting to the ER today with complaints of a 8 day history calf pain and swelling. Does have old bruising noted to the right lower foot. Is significantly swollen when compared to the left leg. Denies any fever or chills but feels tightness and pain in the back of his calf. Is concerned about a DVT General: Well-developed, well nourished, in no apparent distress Head: Normocephalic, atraumatic. Cardio: Regular rate and rhythm, s1 and s2 normal, no murmur appreciated. Resp: Clear to auscultation bilaterally, no rhonchi, rales, wheezing or rubs. Musculoskeletal: No deformity, tender to palpation with bruising and swelling noted over the right calf, old bruising noted to the right foot, swelling noted to the right leg when compared to the left, grossly normal range of motion, muscle strength strong and equal, peripheral pulse strong, no cyanosis, normal gait and station Patient screened in triage and initial orders placed. Additional care and disposition to be based upon diagnostic testing and treatment. <Benny Mittal MD - Last Filed: 01/18/24 20:08> Source: patient <Zain Goncalves APRN - Last Filed: 01/18/24 18:47> Mode of arrival: ambulatory <Zain Goncalves APRN - Last Filed: 01/18/24 18:47> Limitations: no limitations <Zain Goncalves APRN - Last Filed: 01/18/24 18:47> Related Data Allergies/Adverse Reactions: Allergies Allergy/AdvReac Type Severity Reaction Status Date / Time No Known Allergies Allergy Mild Verified 12/29/23 14:24 <Zain Goncalves APRN - Last Filed: 01/18/24 18:47> Review of Systems Review of Systems: All systems reviewed & are unremarkable except as noted in HPI and below <Benny Mittal MD - Last Filed: 01/18/24 20:08> [facility] Past Medical History Medical History: Medical History History of Hodgkin's disease treated with radiation therapy History of [place] (myocardial infarction) Hyperlipidemia Hypothyroidism Prediabetes <Zain Goncalves APRN - Last Filed: 01/18/24 18:47> Surgical History Surgical History: Surgical History History of angioplasty PCI with GHASSAN X2 proximal-mid RCA 09/09/23 <Zain Goncalves APRN - Last Filed: 01/18/24 18:47> Family History Family History: Family History (Reviewe
[2024-01-18 19:32] LABS: Basophils Absolute Auto 0.1 K/mm3 (0.0-0.1); Basophils Percent Auto 0.6 % (0.2-1.2); Eosinophils Absolute Auto 0.4 K/mm3 (0-0.3); Hemoglobin 13.7 g/dL (14.0-18.0); Immature Granulocyte Absolute 0.03 K/mm3 (0.00-0.031); Immature Granulocyte Percent A 0.3 % (0-0.5); Lymphocytes Absolute Auto 2.31 K/mm3 (0.9-3.2); Lymphocytes Percent Auto 22.6 % (18.3-44.2); Mean Corpuscular HGB Conc 33.4 g/dl (32-36); Mean Corpuscular Hemoglobin 30.4 pg (26-34); Mean Corpuscular Volume 91.1 fl (80-100); Mean Platelet Volume 9.6 fl (7.4-10.4); Monocytes Percent Auto 10.2 % (2.6-8.5); Neutrophils Absolute Auto 6.4 K/mm3 (1.3-6.7); Neutrophils Percent Auto 62.3 % (45.5-73.1); Platelet Count Result 271 k/mm3 (150-375); Red Cell Distribution Width 14.5 % (11.5-14.5); White Blood Count 10.2 K/mm3 (4.5-10.0)
[2024-01-18 19:48] LABS: Partial Thromboplastin Time 27.9 Seconds (22.3-36.8)
[2024-01-18 19:49] LABS: Alanine Aminotransferase 30 U/L (6-50); Albumin Level 4.3 g/dL (3.5-5.1); Alkaline Phosphatase 68 U/L (38-126); Anion Gap 4 mmol/L (4-12); Aspartate Amino Transferase 41 U/L (17-59); Bilirubin,Total 0.7 mg/dL (0.2-1.3); Blood Urea Nitrogen 30 mg/dL (9-20); Calcium 9.2 mg/dL (8.4-10.2); Carbon Dioxide 27 mmol/L (22-30); Chloride 110 mmol/L (98-107); Estimated CRCL calculation 63 ml/min; Estimated Glomerular Filt Rate > 60; Glucose 143 mg/dL (65-110); Potassium 4.5 mmol/L (3.4-5.0); Sodium 141 mmol/L (137-145)
== END 2024-01-18 20:20 | disposition home or self-care (01) ==
PROVIDERS: Nurse Practitioner Family; Emergency Provider Emergency Medicine; PCP Family Medicine
DX: S86.111A Strain of other muscle(s) and tendon(s) of posterior muscle group at lower leg level, right leg, initial encounter (principal); I25.2 Old myocardial infarction; E78.5 Hyperlipidemia, unspecified; E03.9 Hypothyroidism, unspecified; R73.03 Prediabetes; Z95.5 Presence of coronary angioplasty implant and graft; Z85.71 Personal history of Hodgkin lymphoma; Z92.3 Personal history of irradiation; Z87.891 Personal history of nicotine dependence; Z79.82 Long term (current) use of aspirin; Z79.899 Other long term (current) drug therapy; X58.XXXA Exposure to other specified factors, initial encounter
CPT/HCPCS: 29515; 36415; 73590; 80053; 85025; 85610; 85730; 93971; 99284